=== PATIENT | male | born 1955 | race Caucasian/White ===

== ENCOUNTER 2019-07-04 07:59 | Observation (INO) | payer OTHER, SELFPAY ==
[2019-06-16 10:03] VITALS: BP 156/99; PULSE 74; RESP 16; TEMP 36.5; O2SAT 98; BMI 40.6
[2019-07-04] VITALS (18 sets, daily range): BP systolic 134–202; BP diastolic 70–112; PULSE 69–117; RESP 16–18; TEMP 36.1–36.8; O2SAT 16–100; BMI 40.6; BMI 40.8; BMI 40.9
[2019-07-04] MEDS: Gabapentin 600 MG Tablet PO (06:39)
[2019-07-04] MEDS: Acetaminophen 500 MG Tablet 1000 MG PO ×3 (06:39→21:23)
[2019-07-04] MEDS: Magnesium Sulfate 4gm/100mL 4 GM/100 ML IV.SOLN. IV (06:58)
[2019-07-04] MEDS: Lactated Ringers 1,000 ML 100 ML IV (07:01)
[2019-07-04 07:06] LABS: Bedside Glucose 95 mg/dL (70-110)
[2019-07-04] MEDS: Lactated Ringers 1,000 ML 125 ML IV ×3 (08:00→23:46)
--- NOTE | 2019-07-04 08:00 | KNEE_PTH ---
PATIENT: NICHOL EWDARDS LOC: MS3 U#:[id number] AGE/SX: 63/M ROOM: MS305 RE07/04/[address]: Dr. Jesus Thakur DO : 1955 BED: 1 DIS: 07/05/2019 SPEC #: [id number] RECD: 07/04/19 14:51 STATUS: SOHAM AISHA #: [id number] HARJINDER: 07/04/19 08:[address]: Jesus Thakur DEPT: SURGICAL PATHOLOGY RECD BY: Leeanne Li Tissues: Knee, NOS Procedures: Decalcification bone/plaque Surgery Specimen Level IV HEADER OPERATION: ERAS, total knee replacement PRE-OP DIAGNOSIS: Unilateral primary osteoarthritis TISSUE SUBMITTED: Left knee bone/tissue MICROSCOPIC DIAGNOSIS Bone and soft tissue of left knee, total knee replacement: Degenerative joint disease. AM:fabi 07/07/19 MICROSCOPIC DESCRIPTION Slides are reviewed. GROSS DESCRIPTION Received is one container designated bone and soft tissue left knee. The specimen consists of multiple fragments of durand-yellow bone measuring in aggregate 11 x 11 x 3 cm. Also in the specimen container are multiple fragments of yellow-white soft tissue measuring in aggregate 8 x 6 x 3 cm. A number of bony fragments contain articular surfaces consistent with tibial plateau and femoral condyle and displaying prominent osteophyte formation and bone erosion. Surface Mount Technology Operator sections are submitted in two cassettes as follows: 1 - soft tissue, 2 - bone after decalcification. / SJ:fabi 07/04/19 :5 [facility]: [id number], [id number]
--- NOTE | 2019-07-04 09:23 | PCM.OPRPT ---
Report of Operation Date of Procedure: 07/04/19 Pre-Operative Diagnosis: OA left knee Post-Operative Diagnosis: same Surgery/Procedure Performed:: Left TKR Description of Surgical Findings:: Primary Surgeon/Physician: Jesus Thakur finishing range operator: Pelon Garcia PA-C finishing range operator: Pre-Operative Diagnosis: OA Left knee Post-Operative Diagnosis: same Surgery/Procedure Performed: Left TKR Estimated Blood Loss: 10 cc Specimen's Removed: kamari Type of Anesthesia: general ASA Class: 3 Implants: [[place] Triathlon press fit CR size 7 femur, press fit size 7 tibia, 9 mm CS polyethylene spacer, 38 mm press fit patella ] Indications: Patient has severe end-stage osteoarthritis diagnosed via x-rays in the knee. They have failed all forms of conservative measures including activity modification, injections, anti-inflammatories, use of assistive device. The patient has pain that affects on a daily basis and prevents him from doing things that they enjoyed. They have elected to undergo the above procedure. The risks of the procedure were discussed at length and their questions were answered. Procedure Description: The patient was greeted in the preoperative area. The [left ] knee was then marked with a surgical marker. Patient was then taken to or Suite 2. They were administered a dose of antibiotics as well as tranexamic acid. Once adequate anesthesia was obtained and airway was secured to placed in supine position on the operating room table. A well-padded tourniquet was placed on the affected extremity. Leg was then prepped and draped in the usual sterile fashion from the knee down. Ioban was used on the skin. Surgical timeout was then performed and confirmed with all present. Six-inch Esmarch was used to examine the limb and tourniquet was then inflated to 250 mmHg. A longitudinal incision was then planned and carried out in the anterior aspect of the knee. The dissection was then carried the length of the incision the extensor mechanism was identified. Standard medial parapatellar arthrotomy was then performed revealing severe eburnation of bone and periarticular osteophytes. There is complete loss of cartilage especially in the medial compartment with varus alignment. Anterior fat pad was removed for visualization purposes and the anterior medial aspect of the tibia was skeletonized for exposure to the knee. The knee was then flexed the patella was inverted. Opening reamer was then used in the femur approximately 1 cm anterior to the attachment of the PCL. The intramedullary valgus wand was then placed in the femur set at 5? of valgus. The distal femoral cutting jig was then applied to the femur with anticipated resection of approximately 8 mm. This was then made with a oscillating saw. The sizing guide was then placed referencing off the posterior condyles and also reference off the epicondylar axis. This was measured and the appropriate size 4-in-1 cutting jig was then applied to the distal femur. Anterior posterior cuts were made followed by the anterior and posterior chamfer cuts. These bony pieces and fragments were removed and placed on the back table. Posterior retractor was then utilized and the tibia was subluxed anteriorly. Intramedullary tibial alignment jig was then applied to the tibia referencing off the medial one third of the tibial tubercle the anterior tibial spine the middle aspect of the tibiotalar joint. Also reference off patient's [place] slope. The tibial cutting jig was then pinned with anticipated resection of 2 mm off of the deficient medial tibial condyle. This cut was made with the oscillating saw. Once this was complete a laminar collaborating supervising physician was utilized in both medial lateral meniscus were removed and a posterior capsular osteophytes were also removed. Posterior capsule release was performed in the posterior capsule as well as the geniculate arteries are treated with the aqua Bailee. The tibia was incised and the appropriate sized tibial tray was then pinned. The femoral trial was then placed and the knee was trialed. Full flexion-extension were easily achieved. The knee seemed to balance quite nicely. Any remaining osteophytes were removed at this time. Once this was complete the patella was everted and the David patella reaming device was then utilized the patella was then placed in the appropriate jig and reamer was then used to remove approximately 9 mm of the undersurface of the patella. A soft tissue remaining was in the way was removed and patella trial was then placed listed maintain excellent tracking using the no thumbs technique. The tibial tray at this point was punched to accommodate the fins of the final implant. The trial components were removed and the knee was copiously irrigated. Did use a cocktail of injection for postoperative pain control. The final components were then impacted into place. The tourniquet was deflated and hemostasis was perfect with Bovie cautery as well as the aqua Manus. The knee is once again trialed with different size polyethylenes to ensure the full range of motion was achieved as well as excellent balancing ligamentously was achieved. At this point the knee was copiously irrigated. Final implant was then inserted locking mechanism was engaged and confirmed to be locked. The arthrotomy was then closed with #1 Vicryl aggravate type fashion interrupted. Subcutaneous tissue was closed with 0 Vicryl and surgical nevaeh were placed in the skin. A occlusive silver impregnated dressing was then applied followed by well-padded sterile dressing secured with an Sherman wrap. The patient was taken to the PACU in stable condition. No complications known at this time. Postoperatively we will maintain standard total knee postoperative protocol. The use of the physician emergency medicine physician assistant was integral during this procedure. They assisted with positioning placement of the tourniquet retracting closure and placement of the dressing. The procedure would have been much more difficult without their expertise and assistance Type of Anesthesia:: General/Regional Anesthesiologist: Estevan Bean Specimen's removed: bone Estimated Blood Loss (mL): 10cc - Admit VTE Documentation VTE Present on Admission: No VTE Mechan Device Prophylaxis: SCD's, Thigh High DIETER Hose VTE Pharm Prophylaxis ordered?: Yes
[2019-07-04 11:14] LABS: Hemoglobin 13.9 g/dL (13.0-16.5); Mean Corp Hgb Conc 30.9 g/dL (32-36); Mean Corpuscular Hgb 27.8 pg (27.0-32.0); Mean Platelet Vol. 10.4 fl (6.2-12.0); Platelet Count 231 K/mm3 (150-450); RBC Distribution Width CV 13.9 % (11.6-14.6); RBC Distribution Width SD 46.2 fl (35.1-43.9); White Blood Count 12.4 K/mm3 (4.4-11.0)
[2019-07-04 11:30] LABS: Anion Gap 7 (5-15); BUN 15 mg/dL (7-18); Calcium,Total 8.8 mg/dL (8.5-10.1); Chloride 106 mmol/L (98-107); Creatinine, Serum 1.36 mg/dL (0.70-1.30); EST Glomerular Filtration Rate 56 mL/min (>60); Est Glom Filt Rate - Afr Amer 68 mL/min (>60); Estimated Creatinine Clearance 59.21 ml/min; Glucose 159 mg/dL (74-106); Potassium 4.1 mmol/L (3.5-5.1); Sodium Level 138 mmol/L (136-145)
[2019-07-04] MEDS: oxyCODONE 5 MG Tablet PO ×2 (14:07→21:22)
[2019-07-04] MEDS: Ketorolac 15 MG/ML Vial IV (14:11)
[2019-07-04] MEDS: Cefazolin 1 GM/50 ML BAG IV ×2 (16:34→23:45)
[2019-07-04] MEDS: Aspirin 325 MG Tablet PO (17:38)
[2019-07-04] MEDS: Senna/Docusate Sodium 1 Tablet 2 TABLET PO (21:23)
[2019-07-04] MEDS: Atorvastatin Calcium 20 MG Tablet PO (21:23)
[2019-07-04] MEDS: Latanoprost 0.005% 1 Bottle 1 DRP EACH EYE (21:24)
[2019-07-05] MEDS: Ketorolac 15 MG/ML Vial IV (00:47)
[2019-07-05] MEDS: oxyCODONE 5 MG Tablet PO ×4 (01:53→13:58)
[2019-07-05 02:05] VITALS: BP 146/83; PULSE 87; RESP 18; TEMP 36.6; O2SAT 97
[2019-07-05] MEDS: Acetaminophen 500 MG Tablet 1000 MG PO ×2 (05:58→13:58)
[2019-07-05] MEDS: Sucralfate 1 GM Tablet PO (05:58)
[2019-07-05] MEDS: 0.9% NaCl Peripheral Flush Adult/Peds IV (06:03)
[2019-07-05 06:28] LABS: Hematocrit 39.9 % (40-54); Hemoglobin 12.6 g/dL (13.0-16.5); Mean Corp Hgb Conc 31.6 g/dL (32-36); Mean Corpuscular Hgb 27.7 pg (27.0-32.0); Mean Corpuscular Volume 87.7 fL (80-94); Mean Platelet Vol. 10.7 fl (6.2-12.0); Platelet Count 204 K/mm3 (150-450); RBC Distribution Width CV 13.8 % (11.6-14.6); RBC Distribution Width SD 44.5 fl (35.1-43.9); Red Blood Count 4.55 M/mm3 (4.6-6.2); White Blood Count 15.1 K/mm3 (4.4-11.0)
[2019-07-05 06:51] LABS: Anion Gap 5 (5-15); BUN 19 mg/dL (7-18); Calcium,Total 8.8 mg/dL (8.5-10.1); Chloride 106 mmol/L (98-107); Creatinine, Serum 1.27 mg/dL (0.70-1.30); EST Glomerular Filtration Rate 61 mL/min (>60); Est Glom Filt Rate - Afr Amer 74 mL/min (>60); Estimated Creatinine Clearance 63.41 ml/min; Glucose 142 mg/dL (74-106); Potassium 4.5 mmol/L (3.5-5.1); Sodium Level 139 mmol/L (136-145)
[2019-07-05] MEDS: Aspirin 325 MG Tablet PO (07:23)
[2019-07-05 07:39] VITALS: BP 166/89; PULSE 76; RESP 18; TEMP 36.5; O2SAT 98
--- NOTE | 2019-07-05 07:40 | PCM.PN.ORT ---
Subjective: Patient sitting at bedside. Patient states pain is very well managed. Denies chest pain, shortness breath, calf pain, nausea vomiting. Patient states he is ready for discharge home. Objective: Dressing is clean dry and intact. Patient has been slightly hypertensive during his course of stay. labs within normal limits. Patient is afebrile, neurovascular is otherwise intact. Patient has no respiratory distress, speaking in full sentences. No signs or symptoms of DVT. - Physical Exam General: Alert, Oriented x3, Cooperative HEENT: PERRLA Oral: Moist Mucosa Neurological: Cranial nerves II-XII grossly intact Psych/Mental Status: Normal Affect Vital Signs Temp Pulse Resp BP Pulse Ox 97.7 F L 76 18 166/89 H 98 07/05/19 07:39 07/05/19 07:39 07/05/19 07:39 07/05/19 07:39 07/05/19 07:39 Oxygen Flow Rate (L/min) 2 Oxygen Delivery Method Room Air Weight: 133 kg Body Mass Index (BMI) 40.8 Intake and Output for Last 24 Hours 07/03/19 07/04/19 07/05/19 23:59 23:59 23:59 Intake Total 3953.75 / 3953.75 747.92 / 747.92 Output Total 400 / 1550 1650 / 1650 Balance 3553.75 / 2403.75 -902.08 / -902.08 Laboratory Tests Past 24 Hrs 07/04/19 07/04/19 07/05/19 11:08 11:08 06:04 WBC 12.4 H 15.1 H RBC 5.00 4.55 L Hgb 13.9 12.6 L Hct 45.0 39.9 L MCV 90.0 87.7 MCH 27.8 27.7 MCHC 30.9 L 31.6 L RDW Std Deviation 46.2 H 44.5 H RDW Coeff of Makenna 13.9 13.8 Plt Count 231 204 MPV 10.4 10.7 Sodium 138 Potassium 4.1 Chloride 106 Carbon Dioxide 25.0 Anion Gap 7 BUN 15 Creatinine 1.36 H Estim Creat Clear Calc 59.21 Est GFR (MDRD) Af Amer 68 Est GFR (MDRD) Non-Af 56 L BUN/Creatinine Ratio 11.0 Glucose 159 H Calcium 8.8 07/05/19 06:04 WBC RBC Hgb Hct MCV MCH MCHC RDW Std Deviation RDW Coeff of Makenna Plt Count MPV Sodium 139 Potassium 4.5 Chloride 106 Carbon Dioxide 28.0 Anion Gap 5 BUN 19 H Creatinine 1.27 Estim Creat Clear Calc 63.41 Est GFR (MDRD) Af Amer 74 Est GFR (MDRD) Non-Af 61 BUN/Creatinine Ratio 15.0 Glucose 142 H Calcium 8.8 Medical Necessity - Tobacco Use Smoking Status: Never smoker Tobacco Use: Non-smoker Assessment/Plan Status post left total knee Hypertension Plan 1. Continue all pain medications as prescribed 2. Continue physical therapy, weight-bear as tolerated with walker 3. Aspirin 325 mg 1 p.o. every 12 hours x30 days for postop DVT prophylaxis 4. Encourage incentive spirometry 5. Discharge home today after p.m. therapy 6. Follow-up with Dr. Thakur as scheduled, see pink sheet 7. Follow with primary care physician 2 to 3 weeks for eval of hypertension
--- NOTE | 2019-07-05 07:47 | DCINST_ITS ---
Discharge Diet: No Restrictions Discharge Activity: May Not Drive, May Shower, Use Walker May shower in (days): 3 Ice area for (Minutes): 20 - each hour while awake. Weight Bearing Status: Weight bearing as tolerated Elevate: Operative Extremity Additional Activity Instructions:: Wear elastic stockings for 2 weeks after your surgery. Call your doctor if your incision/area has: Continuous Slow Oozing, Sudden Increased Bleeding, Increased Pain/ Swelling, Increased Redness, Foul Smelling Discharge Call your doctor if you observe: Fever of 101 or Higher, Coldness, Increased Pain - in extremity, Numbness or Tingling, Change in Color, Calf discomfort, Uncontrolled pain Change Dressing in (Days):: 0 - and daily as needed. Remove Dressing in (days):: 8 Cleanse incision/area with: Soap & Water Allergies/Adverse Reactions: Allergies doxycycline Allergy (Verified 06/21/19 12:06) red itchy neck Medications to take at Discharge Atorvastatin Calcium [Lipitor] 20 mg PO DAILY 06/16/19 Latanoprost 0.005% [Xalatan Opthalmic] 1 drp EACH EYE QHS 06/16/19 Meclizine HCl 25 mg PO PRN PRN 06/16/19 Pantoprazole Sodium [Protonix] 40 mg PO DAILY 06/16/19 Sucralfate [Carafate] 1 gm PO DAILY 06/16/19 Acetaminophen [Tylenol] 1,000 mg PO Q8 #90 tab 07/05/19 Aspirin 325 mg PO BIDCM #60 tab 07/05/19 Oxycodone [Oxyir] 5 - 10 mg PO Q4H PRN PRN 7 Days #85 tab 07/05/19 Senna/Docusate Sodium [Senokot-S] 2 tablet PO BID tablet 07/05/19 The following prescriptions were given: Aspirin 325 mg PO BIDCM #60 tab Prescription Printed Oxycodone [Oxyir] 5 - 10 mg PO Q4H PRN PRN 7 Days #85 tab PRN Reason: Pain Score 4-10/10 Prescription Printed Acetaminophen [Tylenol] 1,000 mg PO Q8 #90 tab Prescription Printed Primary Care Physician: DEIDRE FELIPE [Other] Test Results: Test results from this visit will be discussed in further detail at your follow- up appointment, if applicable. Please Follow Up With: Eliecer Garcia PA-C When: SCHEDULED, SEE PINK SHEET Please Follow Up With: PCP When: 1-2 WEEKS
[2019-07-05 07:58] VITALS: O2SAT 96
[2019-07-05] MEDS: Senna/Docusate Sodium 1 Tablet 2 TABLET PO (08:31)
[2019-07-05] MEDS: Pantoprazole Sodium 40 MG Tablet PO (08:31)
--- NOTE | 2019-07-05 10:45 | CASEMGMT ---
RN LUIS ALBERTO Face to Face with patient for initial transition planning/care coordination assessment. RN CM introduced self and role at [facility]. Patient lying in bed, alert and oriented. Patient willing to participate in assessment and is able to answer all questions appropriately. Care providers, pharmacy, and demographics verified. Patient wishes to discharge home and is setup with [facility] for outpatient therapy on Thursday. Patient states he has no further needs or concerns at this time. CM to follow for discharge planning needs that may arise. PCP: Deven Bethea Specialists: None Preferred Pharmacy: [facility] Insurance: [employer] Prescription Benefit: yes Living Will/HPOA: yes Leigh Garibay HPOA LNOK: Living Arrangements: Patient lives with in single story home with 3 steps to enter the home. Patient was independent prior to surgery Transportation: /son DME/HHC: Patient states he has shower chair, crutches, and walker at home. Patient will go to [facility] for outpatient therapy and is setup for Thursday for initial eval. Disposition Plan: Patient to discharge home with outpatient therapy, family support, and follow-up plans in place. Yoselyn ERICKSON, RN, CM
[2019-07-05 13:48] VITALS: BP 160/89; PULSE 97; RESP 18; TEMP 36.6; O2SAT 97
== END 2019-07-05 14:59 | disposition home or self-care (01) ==
LOC: SDC 08:31 → MS3 07-05 08:40
PROVIDERS: Admitting Provider Orthopaedic Surgery; Referring Provider Orthopaedic Surgery; Visit Provider Orthopaedic Surgery
PROC: (CPT 27447; principal; 2019-07-04 07:35)
DX: M17.12 Unilateral primary osteoarthritis, left knee (principal); I10 Essential (primary) hypertension; E78.00 Pure hypercholesterolemia, unspecified; G47.30 Sleep apnea, unspecified; K21.9 Gastro-esophageal reflux disease without esophagitis; Z79.899 Other long term (current) drug therapy
CPT/HCPCS: 27447; 36415; 80048; 82962; 85027; 87081; 88305; 88311; 96361; 96365; 96366; 96375; 96376; 97110; 97116; 97162; 97166; 97530; 97802; 99218; C1776; J7120; A4216; G0378; G0379; J2405